=== PATIENT | male | born 1985 | race Caucasian/White ===

== ENCOUNTER 2024-07-19 10:04 | Outpatient (AMB) | payer BC, SELFPAY ==
--- NOTE | 2024-07-19 10:13 | MHC.PC.OV ---
Vital Signs 07/19/24 10:15 Height 5 ft 9 in Weight 209 lb 6 oz BMI 30.9 BP 120/72 Blood Pressure Location Lt brachial Position Sitting Pulse 76 Pulse Source Pulse Oximeter Pulse Oximetry (%) 99 Oxygen Delivery Method Room Air Intake Visit Reasons: New Patient Granulator Required: No Accompanied by: Friend Allergies No Known Allergies Allergy (Verified 07/19/24 10:32) Medication List - Last Reconciled 07/19/24 by Oscar Pederson MD No Known Home Meds Tobacco use date assessed: 07/19/24 Dental Screening Dental Screen Date: 07/19/24 Did you have a dental visit in the last 12 months?: Yes Did you have a dental problem in the last 6 months where you did not have access to dental care?: No Was dental information given to patient?: Patient has dentist HPI New Patient HPI Details Patient comes in today for his annual physical examination and to establish care - is a new patient to the practice States that he did not have a regular PCP for many years Patient states that he feels okay except for some recurrent rash on his hands and feet Relates that he's had the scaling rash on both his hands and feet for about a year now - states that the rash itches at times He went to a local urgent care clinic about a month ago and was prescribed some topical steroids and was started as well on oral Fluconazole 150 mg Q week for 4 weeks Notes that the antifungal helped with his groin rash, which is now completely cleared up but it did not help too much with the rash on his hands and feet He denies any headaches or dizziness Denies any chest pains, no SOB No nausea/vomiting, no abdominal pain No change in bowel habits noted He denies any acute urinary symptoms [facility] Medical History (Updated 07/19/24 @ 11:01 by Oscar Pederson MD) Nephrolithiasis Tinea pedis Eczema of both hands Obesity (BMI 30-39.9) Surgical History (Updated 07/19/24 @ 10:41 by Oscar Pederson MD) History of hemorrhoidectomy Family History Other Diabetes High cholesterol History of heart artery stent Social History Housing: House Patient Tobacco Use Status: Never used Tobacco e-Cigarette/Vaping Use: Never Used service: No Current occupational status: unemployed Current occupational exposures/hazards: No Cognitive needs: No Hearing needs: No Vision needs: No Questionnaire PHQ-9 Over the last 2 weeks, how often have you been bothered by any of the following problems? 1. Little interest or pleasure in doing things: not at all 2. Feeling down, depressed, or hopeless: not at all 3. Trouble falling or staying asleep, or sleeping too much: not at all 4. Feeling tired or having little energy: not at all 5. Poor appetite or overeating: not at all 6. Feeling bad about yourself - or that you are a failure or have let yourself or your family down: not at all 7. Trouble concentrating on things, such as reading the newspaper or watching television: not at all 8. Moving or speaking so slowly that other people could have noticed. Or the opposite - being so fidgety or restless that you have been moving around a lot more than usual: not at all 9. Thoughts that you would be better off or of hurting yourself in some way: not at all Total score: 0 Depression Screening Interpretation: Negative Depression Screening Done: Yes 34528 - PHQ-9 Billing: Yes Source: Developed by Drs. Vu Carrion, Mayda Carmichael, Sridhar Conley and colleagues, with an educational fish from [employer]. Thrive Questionnaire Date Thrive assessed: 07/19/24 I am a: Patient What is your living situation today?: I have a steady place to live Within the past 12 months, did the food you bought not last and you didn't have the money to get more?: I choose not to answer this question Within the past 12 months, did you worry whether your food would run out before you got money to buy more?: I choose not to answer this question Do you have trouble paying for medicines?: I choose not to answer this question Do you have trouble getting transportation to medical appointments?: I choose not to answer this question Do you have trouble paying your heating and electricity bill?: I choose not to answer this question Do you have trouble taking care of your child, family member or friend?: I choose not to answer this question Do you have trouble with day-to-day activities such as bathing, preparing meals, shopping, managing finances, etc.?: I choose not to answer this question Are you currently unemployed and looking for a job?: I choose not to answer this question Are you interested in more education?: I choose not to answer this question Please select the resources that you would like help with: None Currently or been in a relationship where the following occur: No concerns reported THRIVE Score: 0 AUDIT C Alcohol Use Questionnaire (AUDIT-C) 1. How often do you have a drink containing alcohol?: Monthly or less 2. How many drinks containing alcohol do you have on a typical day when you are drinking?: 1 or 2 3. How often do you have six or more drinks on one occasion?: Less than monthly Total Score: 2 Score Reviewed/Action Taken: Yes OMA-7 AMB Questionnaire OMA-7 Date OMA - 7 assessed: 07/19/24 Feeling nervous, anxious, or on edge: 0 = Not at all Not being able to stop or control worryin = Not at all Worrying too much about different things: 0 = Not at all Trouble relaxin = Not at all Being so restless that it is hard to sit still: 0 = Not at all Becoming easily annoyed or irritable: 0 = Not at all Feeling afraid as if something awful might happen: 0 = Not at all Total OMA-7 score (0-4 normal; 5-9 mild; 10-14 moderate; 15-21 severe): 0 Source: Developed by Drs. Vu Carrion, Mayda Carmichael, Sridhar Conley and colleagues, with an educational fish from [employer]. Review of Systems Const Denies chills, Denies fatigue, Denies fever(s), Denies headache(s), Denies malaise and Denies weakness Eyes Denies blurry vision, Denies change in vision, Denies irritation and Denies itchy eyes ENT Denies dysphagia, Denies dizziness, Denies otalgia, Denies headache(s), Denies nasal congestion, Denies neck pain, Denies odynophagia and Denies sore throat Card Denies chest pain, Denies rapid heart rate, Denies irregular heart rhythm, Denies palpitations and Denies dyspnea Resp Denies chest congestion, Denies cough, Denies dyspnea and Denies wheezing GI Denies abdominal pain, Denies bloating, Denies constipation, Denies dysphagia, Denies heartburn, Denies diarrhea, Denies nausea, Denies odynophagia and Denies vomiting Denies hematuria, Denies difficulty urinating, Denies dysuria, Denies urinary frequency and Denies urinary urgency Musc Denies back pain, Denies arthralgias, Denies joint swelling, Denies muscle weakness and Denies neck pain Skin/Breast Details: (+) scattered scaling rash on both hands (mostly over the palmar aspect) and on the soles of both feet Denies change in pigmentation, Denies lesions and Denies unusual bruising Neuro Denies dizziness, Denies headache(s), Denies paresthesias and Denies weakness Endo Denies fatigue and Denies palpitations Aller/Immun Denies itchy eyes and Denies wheezing Physical exam (Primary Care) Vital Signs: Last Vital Signs Pulse 76 07/19/24 10:15 BP 120/72 07/19/24 10:15 Pulse Ox 99 07/19/24 10:15 Oxygen Delivery Method Room Air 07/19/24 10:15 BMI result Body Mass Index 30.9 Tobacco/Smoking Status: Tobacco use Status Tobacco use date assessed 07/19/24 07/19/24 10:21 Patient Tobacco Use Status Never used Tobacco 07/19/24 10:21 e-Cigarette/Vaping Use Never Used 07/19/24 10:21 PHQ-9: PHQ-9 Score PHQ-9: Total score 0 07/19/24 10:21 Depression Screening Interpretation: Negative Thrive Assessment: Date of Thrive Assessment Date Thrive assessed 07/19/24 07/19/24 10:14 Currently or been in a relationship where the following occur: No concerns reported Const General: no acute distress, alert and awake Orientation/consciousness: patient oriented x3 HENMT Head: Yes normocephalic and Yes atraumatic Ears: external ears normal, TM's normal bilaterally and EAC's normal General nose exam: No nasal discharge present Face and sinus: Yes normal facial exam and Yes sinuses nontender Teeth and gingiva: dentition normal Throat: Yes posterior oropharynx normal and Yes tonsils normal (no TP congestion) Eyes Eyelids: Yes eyelids normal Conjunctivae: conjunctivae normal Pupils: Equal, round and reactive pupils present EOM: EOMs intact bilaterally Neck Neck: Yes supple and No lymphadenopathy Thyroid: Thyroid normal Resp Auscultation: clear to auscultation bilaterally, no rales and no wheezes Cardio Rate: regular rate Rhythm: regular rhythm Heart sounds: no murmurs GI Palpation (GI): Soft to palpation, nontender and No hepatosplenomegaly present Auscultation: normal bowel sounds General: Yes no CVA tenderness Back/Spine/Pelvis Back: no CVA tenderness Thoracic/Lumbar Spine: No lumbar spinal tenderness Skin Other: (+) scattered scaling rash on both palms and over the soles of both feet Neuro General: patient oriented x3, moves all extremities, no focal motor deficits and CN's II-XI intact bilaterally Cranial nerves: Yes Equal, round and reactive pupils present Cognition (Neuro): normal cognition Gait exam (Neuro): Normal gait present Extrem General: Yes no clubbing, cyanosis or edema Coding Level of Care Code New Pt Prev Care 18-39yr([id number] Diagnoses Annual physical exam Z00.00 Eczema of both hands L30.9 Tinea pedis of both feet B35.3 Laterality: bilateral Obesity (BMI 30-39.9) E66.9 Additional Codes PHQ-9 - 82397 - PHQ-9 Billing: Yes ([id number]) Assessment & Plan Assessment & Plan (1) Annual physical exam: Code(s): Z00.00 - Encounter for general adult medical examination without abnormal findings Category: Medical Plan: Check labs (2) Eczema of both hands: Code(s): L30.9 - Dermatitis, unspecified Category: Medical Plan: Will start him on Clobetasol 0.05% cream to apply to the rash on both hands/palms BID for a minimum of 2 weeks Will also refer him to dermatology for further evaluation and management, especially if he does not respond as planned to the topical steroids that we prescribed for him today (3) Tinea pedis: Code(s): B35.3 - Tinea pedis Category: Medical Qualifiers: Laterality: bilateral Qualified Code(s): B35.3 - Tinea pedis Plan: Will start him for now on Miconazole 2% powder to apply to the soles of both feet BID for a minimum of 2 weeks Patient is also advised to avoid wearing shoes and socks all day long and to try taking them off when he is at home and has no immediate plans to go out He can just wear some socks after applying the antifungal powder to help keep the Rx on as long as possible Will refer him as well to dermatology for further evaluation and management, especially if he does not repond as anticipated to the Miconazole powder that we prescribed for him today (4) Obesity (BMI 30-39.9): Code(s): E66.9 - Obesity, unspecified Category: Medical Plan: Discussed diet/exercise as tolerated/lose weight Plan Follow up in 6 months Orders: Orders Comprehensive [place]. Panel Fast Today E78.00 - Pure hypercholesterolemia, unspecified, Z00.00 - Encounter for general adult medical examination without abnormal findings Vitamin D 25-OH Total Today E55.9 - Vitamin D deficiency, unspecified, Z00.00 - Encounter for general adult medical examination without abnormal findings Complete Blood Count Auto Diff Today D64.9 - Anemia, unspecified, Z00.00 - Encounter for general adult medical examination without abnormal findings Lipid Panel Today E78.00 - Pure hypercholesterolemia, unspecified, Z00.00 - Encounter for general adult medical examination without abnormal findings TSH reflex Free T4 Today E78.00 - Pure hypercholesterolemia, unspecified, Z00.00 - Encounter for general adult medical examination without abnormal findings UA CC w/rflx Micro + Cult Today R30.0 - Dysuria, Z00.00 - Encounter for general adult medical examination without abnormal findings Referrals Dermatology Referral B35.3 - Tinea pedis, L30.9 - Dermatitis, unspecified Medications: New clobetasol 0.05% 1 appl topical BEDTIME 2 weeks 60 grams 1RF hand eczema L30.9 - Dermatitis, unspecified miconazole nitrate 2% 1 appl topical BID 2 weeks 85 grams 1RF tinea pedis B35.3 - Tinea pedis
[2024-07-19 10:15] VITALS: BP 120/72; PULSE 76; O2SAT 99; BMI 30.9
== END 2024-07-19 10:57 | disposition home or self-care (01) ==
PROVIDERS: PCP Internal Medicine; Visit Provider Internal Medicine
DX: Z00.00 Encounter for general adult medical examination without abnormal findings (principal); L30.9 Dermatitis, unspecified; E66.9 Obesity, unspecified; Z68.30 Body mass index [BMI] 30.0-30.9, adult; B35.3 Tinea pedis

== ENCOUNTER → 2024-07-19 10:04 | Outpatient (BNVA) | payer BC, SELFPAY | PROVIDERS: PCP Internal Medicine; Visit Provider Internal Medicine | DX: Z00.00 Encounter for general adult medical examination without abnormal findings (principal); L30.9 Dermatitis, unspecified; B35.3 Tinea pedis; E66.9 Obesity, unspecified; Z68.30 Body mass index [BMI] 30.0-30.9, adult | CPT/HCPCS: 96127 ==

== ENCOUNTER 2024-07-22 12:16 | Outpatient (REF) | payer BC, SELFPAY ==
[2024-07-22 13:21] LABS: Basophils Percent Auto 0.5 % (0-2); Eosinophils Absolute Auto 0.1 X10*3/uL (0.0-0.4); Hemoglobin 14.1 g/dl (14.0-18.0); Imm Gran Abs Auto 0.12 X10*3/uL (0.00-0.03); Imm Gran Pct Auto 1.9 % (0.0-0.4); Lymphocytes Absolute Auto 1.6 X10*3/uL (1.2-4.9); Lymphocytes Percent Auto 24.3 % (20-40); MANUAL DIFF FLAG NO; Mean Corpuscular HGB Conc 32.8 g/dl (31.0-36.0); Mean Corpuscular Hemoglobin 28.4 pg (27.0-33.0); Mean Corpuscular Volume 86.5 fL (80.0-98.0); Mean Platelet Volume 9.7 fL (9.4-12.4); Monocytes Absolute Auto 0.5 X10*3/uL (0.1-1.2); Monocytes Percent Auto 7.7 % (2-11); Neutrophils Absolute Auto 4.1 x10*3/uL (2.0-8.3); Neutrophils Percent Auto 63.6 % (45-73); Platelet Count 246 X10*3/uL (160-400); Red Blood Count 4.97 X10*6/uL (4.60-5.80); Red Cell Distribution Width 12.9 % (11.0-16.0); White Blood Count 6.5 X10*3/uL (4.8-10.8)
[2024-07-22 14:38] LABS: Alanine Aminotransferase 49 U/L (0-40); Albumin Level 4.6 g/dL (3.5-5.0); Alkaline Phosphatase 59 U/L (39-117); Anion Gap 12 (12-20); Aspartate Amino Transferase 27 U/L (5-37); Bilirubin Total 1.1 mg/dL (0.0-1.0); Blood Urea Nitrogen 15 mg/dL (9-16); Calcium 9.5 mg/dL (8.4-10.2); Carbon Dioxide 26 mmol/L (22-29); Chloride 105 mmol/L (96-108); Cholesterol 212 mg/dL (<200); Estimated Glomerular Filt Rate > 60; Glucose Fasting 91 mg/dL (60-99); HDL Cholesterol 45 mg/dL (>40); LDL Cholesterol Calculated 130 mg/dL (<100); Potassium 4.4 mmol/L (3.3-5.1); Sodium 139 mmol/L (135-145); Total Protein 7.4 g/dL (6.5-8.0); Triglycerides 185 mg/dL (<150)
[2024-07-22 14:53] LABS: TSH reflex Free T4 1.74 uIU/mL (0.32-4.0); Vitamin D 25-OH Total 26.9 ng/mL (>30)
[2024-07-22 17:25] LABS: Appearance Urine Clear; Color Urine Yellow; Glucose Urine UA Negative (Negative); Leukocyte Esterase Urine Negative (Negative); Nitrite Urine Negative (Negative); PH 5.5 (5.0-9.0); Specific Gravity - Urine 1.025 (1.005-1.025); Urine Blood Negative (Negative); Urine Ketones Negative (Negative); Urine Protein Negative (Neg-Trace)
== END 2024-07-22 12:17 | disposition home or self-care (01) ==
LOC: HO.LAB 12:16
PROVIDERS: PCP Internal Medicine; Visit Provider Internal Medicine
DX: Z00.00 Encounter for general adult medical examination without abnormal findings (principal); E55.9 Vitamin D deficiency, unspecified; E78.00 Pure hypercholesterolemia, unspecified; R30.0 Dysuria; D64.9 Anemia, unspecified
CPT/HCPCS: 36415; 80053; 80061; 81003; 82306; 84443; 85025

== ENCOUNTER 2025-01-31 10:27 | Outpatient (AMB) | payer BC, SELFPAY ==
[2025-01-31 10:52] VITALS: BP 110/82; PULSE 66; O2SAT 95; BMI 30.7
--- NOTE | 2025-01-31 10:52 | A.OFFPC_ITS ---
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 Accompanied by: Self / Same As Patient Allergies No Known Allergies Allergy (Verified 01/31/25 12:53) Medication List - Last Reconciled 01/31/25 by Oscar Pederson MD clobetasol 0.05% 1 appl topical BEDTIME 2 weeks famotidine 20 mg PO BID PRN miconazole nitrate 2% 1 appl topical BID 2 weeks Tobacco use date assessed: 01/31/25 Dental Screening Dental Screen Date: 01/31/25 Did you have a dental visit in the last 12 months?: Yes Did you have a dental problem in the last 6 months where you did not have access to dental care?: No Was dental information given to patient?: Patient has dentist HPI side pain HPI Details Patient comes in today for his follow up visit Reports experiencing on and off pain over the left upper abdominal area for the past few weeks Notes that the pain would already be present sometimes when he wakes up in the morning and that eating or drinking certain things would makes his pain worse States that he has since cut back on drinking sodas and this seems to have helped somewhat He denies any associated nausea or vomiting and states that he's had no problems with bowel movements He denies any headaches or dizziness Denies any chest pains, no SOB Adds that he was not able to see dermatology a few months ago when his a ppointment came up as he had some issues with his insurance then States that his insurance issues have been addressed and he is wondering if he needs a new referral to dermatology placed again He is requesting in the meantime to have his Clobetasol ointment Rx refilled States that he also has a raised, hyperpigmented lesion on his left cheek that came up recently and he is going to have dermatology look into this as well Adds that he hurt his left pinkie (5th finger) at work about a week ago and it is still swollen and slightly painful after a week - notes that he cannot bend/flex his 5th finger completely He would also like to know how his labs done back in July 2024 came out [facility] Medical History (Updated 01/31/25 @ 11:23 by Oscar Pederson MD) Vitamin D deficiency Mixed hyperlipidemia Nephrolithiasis Tinea pedis Eczema of both hands Obesity (BMI 30-39.9) Surgical History History of hemorrhoidectomy Family History Other Diabetes High cholesterol History of heart artery stent Social History Housing: House Patient Tobacco Use Status: Never used Tobacco e-Cigarette/Vaping Use: Never Used service: No Current occupational status: unemployed Current occupational exposures/hazards: No Cognitive needs: No Hearing needs: No Vision needs: No Questionnaire PHQ-9 Over the last 2 weeks, how often have you been bothered by any of the following problems? 1. Little interest or pleasure in doing things: not at all 2. Feeling down, depressed, or hopeless: not at all 3. Trouble falling or staying asleep, or sleeping too much: not at all 4. Feeling tired or having little energy: not at all 5. Poor appetite or overeating: not at all 6. Feeling bad about yourself - or that you are a failure or have let yourself or your family down: not at all 7. Trouble concentrating on things, such as reading the newspaper or watching television: not at all 8. Moving or speaking so slowly that other people could have noticed. Or the opposite - being so fidgety or restless that you have been moving around a lot more than usual: not at all 9. Thoughts that you would be better off or of hurting yourself in some way: not at all Total score: 0 Depression Screening Interpretation: Negative Depression Screening Done: Yes 12966 - PHQ-9 Billing: Yes Source: Developed by Drs. uV Carrion, Mayda Carmichael, Sridhar Conley and colleagues, with an educational fish from [employer]. Thrive Questionnaire Date Thrive assessed: 01/31/25 I am a: Patient What is your living situation today?: I have a steady place to live Within the past 12 months, did the food you bought not last and you didn't have the money to get more?: I choose not to answer this question Within the past 12 months, did you worry whether your food would run out before you got money to buy more?: I choose not to answer this question Do you have trouble paying for medicines?: I choose not to answer this question Do you have trouble getting transportation to medical appointments?: I choose not to answer this question Do you have trouble paying your heating and electricity bill?: I choose not to answer this question Do you have trouble taking care of your child, family member or friend?: I choose not to answer this question Do you have trouble with day-to-day activities such as bathing, preparing meals, shopping, managing finances, etc.?: I choose not to answer this question Are you currently unemployed and looking for a job?: I choose not to answer this question Are you interested in more education?: I choose not to answer this question Please select the resources that you would like help with: None Currently or been in a relationship where the following occur: No concerns reported THRIVE Score: 0 AUDIT C Alcohol Use Questionnaire (AUDIT-C) 1. How often do you have a drink containing alcohol?: Monthly or less 2. How many drinks containing alcohol do you have on a typical day when you are drinking?: 1 or 2 3. How often do you have six or more drinks on one occasion?: Less than monthly Total Score: 2 Score Reviewed/Action Taken: Yes OMA-7 AMB Questionnaire OMA-7 Date OMA - 7 assessed: 01/31/25 Feeling nervous, anxious, or on edge: 0 = Not at all Not being able to stop or control worryin = Not at all Worrying too much about different things: 0 = Not at all Trouble relaxin = Not at all Being so restless that it is hard to sit still: 0 = Not at all Becoming easily annoyed or irritable: 0 = Not at all Feeling afraid as if something awful might happen: 0 = Not at all Total OMA-7 score (0-4 normal; 5-9 mild; 10-14 moderate; 15-21 severe): 0 Source: Developed by Drs. Vu Carrion, Mayda Carmichael, Sridhar Conley and colleagues, with an educational fish from [employer]. Review of Systems Const Denies chills, Denies fatigue, Denies fever(s) and Denies headache(s) ENT Denies dysphagia, Denies dizziness, Denies otalgia, Denies headache(s), Denies neck pain, Denies odynophagia and Denies sore throat Card Denies chest pain, Denies palpitations and Denies dyspnea Resp Denies cough and Denies dyspnea GI Reports abdominal pain (on and off over the left upper abdomen - see HPI), Denies constipation, Denies dysphagia, Denies heartburn, Denies diarrhea, Denies nausea, Denies odynophagia and Denies vomiting Denies difficulty urinating, Denies dysuria, Denies nocturia and Denies urinary frequency Musc Denies back pain, Reports arthralgias (pain and swelling of the left 5th finger - see HPI) and Denies neck pain Skin/Breast Details: (+) raised hypigmented lesion on the left cheek Reports rash (on both hands, recurrent) Neuro Denies dizziness and Denies headache(s) Endo Denies fatigue and Denies palpitations Physical exam (Primary Care) Vital Signs: Last Vital Signs Pulse 66 01/31/25 10:52 BP 110/82 01/31/25 10:52 Pulse Ox 95 01/31/25 10:52 Oxygen Delivery Method Room Air 01/31/25 10:52 BMI result Body Mass Index 30.7 Tobacco/Smoking Status: Tobacco use Status Tobacco use date assessed 01/31/25 01/31/25 10:56 Patient Tobacco Use Status Never used Tobacco 01/31/25 10:56 e-Cigarette/Vaping Use Never Used 01/31/25 10:56 PHQ-9: PHQ-9 Score PHQ-9: Total score 0 01/31/25 11:16 Depression Screening Interpretation: Negative Thrive Assessment: Date of Thrive Assessment Date Thrive assessed 01/31/25 01/31/25 10:56 Currently or been in a relationship where the following occur: No concerns reported Const General: no acute distress and alert HENMT Ears: TM's normal bilaterally and EAC's normal Throat: Yes posterior oropharynx normal and Yes tonsils normal (no TP congestion) Neck Neck: Yes supple and No lymphadenopathy Thyroid: Thyroid normal Resp Auscultation: clear to auscultation bilaterally, no rales and no wheezes Cardio Rate: regular rate Rhythm: regular rhythm Heart sounds: no murmurs GI Palpation (GI): Soft to palpation, nontender, no guarding and No Rebound tenderness present Auscultation: normal bowel sounds General: Yes no CVA tenderness Back/Spine/Pelvis Back: no CVA tenderness Thoracic/Lumbar Spine: No lumbar spinal tenderness Skin Other: (+) scattered scaling rash on both palms and over the soles of both feet; (+) single, raised, hyperpigmented lesion on the left cheek Extrem General: Yes no clubbing, cyanosis or edema Left upper extremity: hand Details: tenderness Location: of the 5th digit Loc ation: involving the entire digit and swelling Location: of the 5th digit Location: involving the entire digit Results Reviewed Results Reviewed: Laboratory Tests 07/22/24 07/22/24 12:25 12:28 WBC 6.5 Hgb 14.1 Hct 43.0 Plt Count 246 Sodium 139 Potassium 4.4 Creatinine 0.93 Estimated GFR > 60 Fasting Glucose 91 Calcium 9.5 AST 27 ALT 49 H Triglycerides 185 H Cholesterol 212 H LDL Cholesterol, Calc 130 H HDL Cholesterol 45 25-OH Vitamin D Total 26.9 L TSH 1.74 Ur Specific [place] 1.025 Urine Protein Negative Urine Glucose (UA) Negative Urine Blood Negative Urine Nitrite Negative Ur Leukocyte Esterase Negative Coding Level of Care Code Est Pt Level 4 (38599) Diagnoses LUQ abdominal pain R10.12 Mixed hyperlipidemia E78.2 Vitamin D deficiency E55.9 Finger pain, left M79.645 Eczema of both hands L30.9 Obesity (BMI 30-39.9) E66.9 Additional Codes PHQ-9 - 77848 - PHQ-9 Billing: Yes ([id number]) Assessment & Plan Assessment & Plan (1) LUQ abdominal pain: Code(s): R10.12 - Left upper quadrant pain Category: Medical Plan: Advised patient that based on his symptoms, his recent left upper abdominal pain is likely due to something similar to gastritis or abdominal cramping As he has already started to make some dietary changes which he feels are helping, have encouraged him to continue to do so Dietary restrictions discussed Will start him for now on Famotidine 20 mg and he is instructed to take this BID but only PRN for any recurrence of his left abdominal pain If his symptoms continue to improve with dietary changes/modifications, then nothing else needs to be done at this time Conversely, if his symptoms continue to recur, persist or get worse despite his attempts at dietary modification, he will then need further workups - will likely then send him for an upper GI series for further evaluation and will also start him then on a PPI for maintenance Tx (2) Mixed hyperlipidemia: Code(s): E78.2 - Mixed hyperlipidemia Category: Medical Plan: Results of his labs done last July 2024 reviewed and discussed with patient - have advised him that his cholesterol levels were high normal on his labs Discussed low cholesterol diet Will have him recheck his labs and fasting lipids in 6 months for follow up (3) Vitamin D deficiency: Code(s): E55.9 - Vitamin D deficiency, unspecified Category: Medical Plan: He is advised that his vitamin D level was low on his recent labs Will start him on Vitamin D3 2000 units QD (4) Finger pain, left: Code(s): M79.645 - Pain in left finger(s) Category: Medical Plan: Will send him for x-rays of the left 5th finger NACHO for further evaluation (5) Eczema of both hands: Code(s): L30.9 - Dermatitis, unspecified Category: Medical Plan: Continue Clobetasol 0.05% cream to apply to the rash on both hands/palms BID for a minimum of 2 weeks - Rx refilled Have advised him that his referral to dermatology is still active and all he probably has to do is to call them back to schedule his appt. Have advised him to call us at any time if he is advised that he will need a new referral from us (6) Obesity (BMI 30-39.9): Code(s): E66.9 - Obesity, unspecified Category: Medical Plan: Reinforced diet/exercise as tolerated/lose weight Plan To return in 6 months for his next annual physical examination Orders: Orders XR finger LT min 2V Today M79.645 - Pain in left finger(s) Complete Blood Count Auto Diff 6 Months D64.9 - Anemia, unspecified, Z00.00 - Encounter for general adult medical examination without abnormal findings TSH reflex Free T4 6 Months E78.00 - Pure hypercholesterolemia, unspecified, Z00.00 - Encounter for general adult medical examination without abnormal findings UA CC w/rflx Micro + Cult 6 Months R30.0 - Dysuria, Z00.00 - Encounter for general adult medical examination without abnormal findings Comprehensive [place]. Panel Fast 6 Months E78.00 - Pure hypercholesterolemia, unspecified, Z00.00 - Encounter for general adult medical examination without abnormal findings Lipid Panel 6 Months E78.00 - Pure hypercholesterolemia, unspecified, Z00.00 - Encounter for general adult medical examination without abnormal findings Vitamin D 25-OH Total 6 Months E55.9 - Vitamin D deficiency, unspecified, Z00.00 - Encounter for general adult medical examination without abnormal findings Medications: New famotidine 20 mg PO BID PRN 60 tabs 1RF abdominal pain Refilled clobetasol 0.05% 1 appl topical BEDTIME 60 grams 1RF hand eczema 2 weeks L30.9 - Dermatitis, unspecified
== END 2025-01-31 11:35 | disposition home or self-care (01) ==
LOC: HO.HMCH 10:27
PROVIDERS: PCP Internal Medicine; Visit Provider Internal Medicine
DX: R10.12 Left upper quadrant pain (principal); E78.2 Mixed hyperlipidemia; Z68.30 Body mass index [BMI] 30.0-30.9, adult; E66.9 Obesity, unspecified; E55.9 Vitamin D deficiency, unspecified; M79.645 Pain in left finger(s); L30.9 Dermatitis, unspecified

== ENCOUNTER → 2025-01-31 10:27 | Outpatient (BNVA) | payer BC, SELFPAY | PROVIDERS: PCP Internal Medicine; Visit Provider Internal Medicine | DX: R10.12 Left upper quadrant pain (principal); E78.2 Mixed hyperlipidemia; E55.9 Vitamin D deficiency, unspecified; M79.645 Pain in left finger(s); L30.9 Dermatitis, unspecified; E66.9 Obesity, unspecified; Z68.30 Body mass index [BMI] 30.0-30.9, adult; Z13.31 Encounter for screening for depression; Z13.39 Encounter for screening examination for other mental health and behavioral disorders | CPT/HCPCS: 96127 ==